=== PATIENT | male | born 1960 | race Two or more races ===

== ENCOUNTER 2020-05-02 14:23 | Emergency (ER) | payer SELFPAY ==
[~2020-05-02] VITALS: Ht 167.6 cm; Wt 72.0 kg
[2020-05-02 15:00] VITALS: BP 165/77
[2020-05-02] MEDS ORDERED: methylPREDNISolone SOD SUCC PF 125 MG/2 ML VIAL. IM ONE (15:30)
[2020-05-02] MEDS ORDERED: diazePAM 5 MG TABLET PO ONE (15:30)
[2020-05-02] MEDS ORDERED: KETOROLAC 60 MG/2 ML VIAL. IM ONE (15:30)
[2020-05-02] MEDS ORDERED: HYDR-3164 PO (15:36)
[2020-05-02] MEDS ORDERED: DICL50TA2 PO (15:36)
[2020-05-02] MEDS ORDERED: CYCL10TA2 PO (15:36)
--- NOTE | 2020-05-02 15:36 | PHYS DOC ---
Past Medical History Past Medical History: Diabetes-Type II, High Cholesterol, Hypertension Past Surgical History: No Surgical History Smoking Status: Never Smoker Alcohol Use: None General Adult EDM: Chief Complaint: LOWER BACK PAIN OR INJURY HPI: HPI: Patient is a 59 year old male with history of diabetes type 2, hypertension, high cholesterol, who presents to the ED today complaining of 10 out of 10 right low back pain radiating to the right thigh that began yesterday after picking heavy trash from the ground. Patient states the pain began immediately he stood up from bending position. Denies any numbness or tingling to bilateral lower extremities. Denies any loss of bowel/bladder function. States the pain is worse on touching the right low back as well as certain movements. Review of Systems: Review of Systems: Constitutional: Denies fever or chills. [] Eyes: Denies change in visual acuity. [] HENT: Denies nasal congestion or sore throat. [] Respiratory: Denies cough or shortness of breath. [] Cardiovascular: Denies chest pain or edema. [] GI: Denies abdominal pain, nausea, vomiting, bloody stools or diarrhea. [] : Denies dysuria. [] Musculoskeletal: Reports right low back pain radiating to the right thigh Integument: Denies rash. [] Neurologic: Denies headache, focal weakness or sensory changes. [] Psychiatric: Denies depression or anxiety. [] Heart Score: Risk Factors: Risk Factors: DM, Current or recent (<one month) smoker, HTN, HLP, family history of CAD, obesity. Risk Scores: Score 0 - 3: 2.5% MACE over next 6 weeks - Discharge Home Score 4 - 6: 20.3% MACE over next 6 weeks - Admit for Clinical Observation Score 7 - 10: 72.7% MACE over next 6 weeks - Early Invasive Strategies Current Medications: Current Medications Medications (Trade) Dose Ordered Sig/Korin Start Time Stop Time Status Last Admin Dose Admin Diazepam (Valium) 5 mg 1X ONCE 05/02/20 15:30 05/02/20 15:31 Ketorolac Tromethamine (Toradol Im) 60 mg 1X ONCE 05/02/20 15:30 05/02/20 15:31 Methylprednisolone Sodium Succinate (SOLU-Medrol 125MG VIAL) 125 mg 1X ONCE 05/02/20 15:30 05/02/20 15:31 Allergies: Allergies: Allergies Coded Allergies Type Severity Reaction Last Updated Verified No Known Drug Allergies 05/02/20 No Physical Exam: PE: Constitutional: Well developed, well nourished, no acute distress, non-toxic ap pearance. [] Abdomen: Bowel sounds normal, soft, no tenderness, no masses, no pulsatile masses. [] Skin: Warm, dry, no erythema, no rash. [] Back: Diffuse paraspinal muscle tenderness in the right lumbar spine especially at the SI joint, no midline lumbar spine tenderness, no CVA tenderness. [] Extremities: No tenderness, no cyanosis, no clubbing, ROM intact, no edema. [] Neurologic: Alert and oriented X 3, normal motor function, normal sensory function, no focal deficits noted. [] Psychologic: Affect normal, judgement normal, mood normal. [] Current Patient Data: Vital Signs: Vital Signs Date Time Temp Pulse Resp B/P (MAP) Pulse Ox O2 Delivery O2 Flow Rate FiO2 05/02/20 15:00 98.3 94 18 165/77 (106) 98 Room Air 98.3 EKG: EKG: [] Radiology/Procedures: Radiology/Procedures: [] Course & Med Decision Making: Course & Med Decision Making Pertinent Labs and Imaging studies reviewed. (See chart for details) This is a 59-year-old male patient presented to the ED today with low back pain that began yesterday after picking up heavy trash. No cauda equina syndrome symptoms. Was discharged to home follow-up with PCP within 2 weeks. Heating pad recommended to the back. Exercises provided. Pain relief for home use provided. Dragon Disclaimer: Jenifer Disclaimer: This electronic medical record was generated, in whole or in part, using a voice recognition dictation system. Departure Departure Impression: Primary Impression: Low back pain Qualified Codes: M54.5 - Low back pain Disposition: 01 DC HOME SELF CARE/HOMELESS Condition: STABLE Referrals: NO PCP (PCP) DIGNA CORTEZ MD follow up with your doctor in 1-2 weeks Patient Instructions: Back Pain, Adult Additional Instructions: You were evaluated in the emergency room for back pain. Take the prescribed med ications as ordered. Follow-up with your doctor in 1 to 2 weeks Scripts Hydrocodone/Apap 5-325 (NORCO 5-325 TABLET) 1 Each Tablet 1 TAB PO Q6-8HRS PRN for PAIN, #20 TAB Prov: SHAKIRA KESSLER APRN 05/02/20 Diclofenac Potassium (DICLOFENAC POTASSIUM) 50 Mg Tablet 1 TAB PO BID, #20 TAB 0 Refills Prov: SHAKIRA KESSLER APRN 05/02/20 Cyclobenzaprine Hcl (CYCLOBENZAPRINE HCL) 10 Mg Tablet 1 TAB PO TID, #30 TAB Prov: SHAKIRA KESSLER APRN 05/02/20 SHAKIRA KESSLER APRN May 02, 2020 15:36
== END 2020-05-02 16:01 | disposition home or self-care (01) ==
LOC: ER 14:23
DX: M54.5 Low back pain (principal); E11.9 Type 2 diabetes mellitus without complications; E78.00 Pure hypercholesterolemia, unspecified; I10 Essential (primary) hypertension
CPT/HCPCS: 96372; 99284; J1885; J2930